=== PATIENT | female | born 1970 | race Asian ===

== ENCOUNTER → 2021-11-11 10:23 | Outpatient (CLI) | payer OTHER, SELFPAY ==
--- NOTE | 2021-11-11 10:27 | DI.CT.S_ITS ---
PROCEDURE: CT ABDOMEN PELVIS WO/W CON INDICATIONS: Hematuria of unknown origin TECHNIQUE: Optional 5 mm thick noncontrast images acquired from the diaphragm to the symphysis pubis. After the administration of intravenous contrast, 5 mm thick images acquired from the diaphragm to the symphysis pubis after a 10-minute delay. 2 mm thick coronal and sagittal reformats were then performed of the kidneys and ureters. For radiation dose reduction, the following was used: automated exposure control, adjustment of mA and/or kV according to patient size. COMPARISON: [facility], , US RENAL, 08/19/2021, 21:22. FINDINGS: Image quality: Excellent. Lung bases: Lung bases are clear. Heart size is normal. Urinary system: Both kidneys are normal in size, without hydronephrosis or nephrolithiasis on pre-contrast images. No perinephric fat stranding. There is normal bilateral renal enhancement. Renal calyces appear normal in morphology when filled with contrast. No abnormality is identified within the inferior right renal pole as identified on prior ultrasound. Opacified portions of both ureters demonstrate normal caliber. Bladder wall thickness is normal. No calcified bladder stones. Other solid organs: Liver is normal in size. Mild steatosis is present. There are 2 foci of low attenuation in the posterior right hepatic lobe the largest measuring 2.4 cm. Hounsfield units are less than 20. Gallbladder is contracted but grossly unremarkable . Biliary system is non dilated. Pancreas enhances normally. Spleen is normal in size and enhancement. No adrenal nodules. Peritoneum and bowel: Bowel loops demonstrate normal wall thickness and caliber. No free fluid or air. Nodes and vessels: No retroperitoneal or mesenteric adenopathy by size criteria. Aorta and inferior vena cava are normal in size. Abdominal wall: No ventral hernias. Pelvis: No pathologic free pelvic fluid. No inguinal hernias or adenopathy. Uterus is enlarged as well as lobulated with multiple areas of calcification. Endometrial complex appears prominent. Bones: No suspicious bony lesions. No vertebral body compression fractures. IMPRESSION: No renal, ureteral or bladder calculi. Previous areas of increased echogenicity within the kidneys are not visualized on current exam. No filling defects are identified. Enlarged lobulated bladder with multiple areas of calcifications suggestive of fibroids. Pelvic ultrasound may be obtained for further evaluation. Prominent appearance of the uterine endometrium. Further evaluation with pelvic ultrasound is recommended. Dictated by: Alyce Schmid M.D. on 11/11/2021 at 15:38 Approved by: Alyce Schmid M.D. on 11/11/2021 at 15:42
== END ==
PROVIDERS: PCP Physician Assistant Medical; Referring Provider Specialist; Visit Provider Specialist
DX: R31.0 Gross hematuria (principal); N32.89 Other specified disorders of bladder; R39.9 Unspecified symptoms and signs involving the genitourinary system
CPT/HCPCS: 74178; Q9967

== ENCOUNTER 2023-10-27 12:11 | Day surgery (SDC) | payer OTHER, SELFPAY ==
[2023-10-25 09:45] VITALS: BMI 23.7
[2023-10-27] VITALS (17 sets, daily range): BP systolic 101–124; BP diastolic 50–69; PULSE 54–72; RESP 12–18; TEMP 36.1–36.8; O2SAT 96–100; BMI 23.7
--- NOTE | 2023-10-27 | PATH_ITS ---
[facility] Accession Number: [id number] No. of containers..01 Tissue . 01 Material submitted: . uterus - UTERUS AND BILATERAL FALLOPIAN TUBES . 01 Diagnosis: UTERUS AND BILATERAL FALLOPIAN TUBES, HYSTERECTOMY AND BILATERAL SALPINGECTOMY: Multiple benign leiomyomas. Paratubal cyst. No evidence of malignancy or atypical hyperplasia. [facility] 11/01/2023 0843 Local . 01 Electronically signed: . Sarita Carroll MD, Pathologist NPI- [id number] . 01 Gross description: . Received in formalin with two patient identifiers and designated uterus, bilateral fallopian tubes, and consists of a 15.0 x 12.0 x 5.0 cm aggregate (299-gram) fragmented uterus with detached cervix and detached bilateral fimbriated fallopian tubes. The detached cervix measures 3.0 x 2.5 x 1.5 cm, and has a focally hemorrhagic white glistening ectocervix. There are multiple endocervical cysts which are simple and mucoid filled, ranging from 0.2 cm up to 0.5 cm in greatest dimension. There is a 1.1 cm slit-like patient os. The endocervical canal is sinclair, trabeculated, and free of exophytic lesions. The serosal surface is sinclair, focally hemorrhagic, smooth and glistening. The myometrium is sinclair, trabeculated with multiple white, whorled, well-circumscribed, intramural and subserosal nodules (more than 10), ranging from 0.3 x 0.2 x 0.2 cm up to 5.0 x 4.5 x 3.8 cm. Two of the larger nodules are diffusely calcified. The uninvolved myometrium averages 1.8 cm thickness. The endometrium is diffusely hemorrhagic, sinclair-red, and averages 0.2 cm in thickness. The first detached fimbriated fallopian tube measures 3.0 cm in length by 0.4 cm in diameter and has a 0.5 x 0.4 x 0.4 cm unilocular smooth-walled serous fluid-filled paratubal cyst. The second detached fimbriated fallopian tube measures 2.8 cm in length by 0.4 cm in diameter, and has a 0.3 cm stellate lumen. Computer Builder sections are submitted: . A1-A2: Cervix. A3: Full thickness endomyometrium. A4: Endomyometrium. A5-A6: Computer Builder sections of smaller myometrial nodules (four pieces in each cassette). A7: Computer Builder sections of larger calcified myometrial nodules (following decalcification). A8: Fimbriated fallopian tube and paratubal cyst 1. A9: Fimbriated fallopian tube #2. ([id number]) /MRV 10/28/2023 1329 Local . 01 Pathologist provided ICD-10: D25.0, D25.2 . 01 CPT . 403550 Specimen Comment: A courtesy copy of this report has been sent to [phone] Performed at: [address] [facility] [address], [place], [place] [id number] MD Pankaj Cao MD Phone: [phone]
--- NOTE | 2023-10-27 12:39 | PM.PREOP ---
Pre-operative Note Interval Note History & Physical reviewed/Exam performed by Physician: Yes Changes to H&P: No H&P completed within 30 days and has changed as indicated here:: 10/05/23
[2023-10-27] MEDS: LACTATED RINGERS 1,000 ML 21 ML IV ×2 (12:43→14:53)
[2023-10-27] MEDS: CEFAZOLIN 2 GM/100 ML PREMIX 100 ML IV (13:40)
[2023-10-27] MEDS: ACETAMINOPHEN IV 1,000 MG/100 ML VIAL 400 MG IV (13:45)
--- NOTE | 2023-10-27 14:24 | SUR.OPER ---
Lithotomy on padded OR bed. [place] Pad Positioner under torso. Head on pillow, arms padded and tucked at sides. Legs secured in padded yellow fins stirrups.
[2023-10-27] MEDS: BUPIVACAINE 0.25% (PF) 30 ML, EPINEPHrine 0.15 MG INJ (14:40)
--- NOTE | 2023-10-27 16:49 | P.OP_ITS ---
Operative Date/Time/Diagnoses Date of procedure: 10/27/23 Time of procedure: 16:49 Pre-op diagnosis: Uterine prolapse Enlarged fibroid uterus Cystocele and rectocele Post-op diagnosis: same Procedure & Clinicians Procedure: Procedures Operation Date: 10/27/23 13:30 Actual Procedure Side Surgeon p Laparoscopic Assisted Vaginal Hysterectomy with bilateral salpingo- oophorectomy, cystoscopy MD leif Wilkins Anterior/Posterior Repair Elina Mi MD Indications: 53-year-old with uterine prolapse, cystocele, and rectocele. Surgeon: Elian Mi Change Management Consultant: Carmen Thayer Anesthesia Type: General and Local Operative Notes Findings: Ten week size multifibroid uterus Normal tubes and ovaries Third-degree cystocele Second-degree rectocele Closure Type: primary Specimen(s): left tube & ovary, right tube & ovary and uterus Applied: catheter (To continuous drainage) Estimated blood loss (mL): 100 Blood products transfused: none Procedure in detail: The patient was taken to the operating room where she was placed in the dorsal supine position. After adequate general endotracheal anesthesia was achieved, she was placed in the dorsal lithotomy position, and prepped and draped in the usual sterile fashion. A bivalve speculum was placed into the vagina, and a single-tooth tenaculum was placed on the anterior lip of the cervix. The cervical os was sequentially dilated until the ZUMI uterine manipulator could pass easily into the endometrial cavity. The single-tooth tenaculum was removed from the anterior lip of the cervix, and the bivalve speculum was removed from the vagina. Attention was then turned to the abdomen where 4 mL of half percent Marcaine with epinephrine were injected in the umbilical fold. A 5 mm incision was made. The Verees needle was placed into the peritoneal cavity, and its placement confirmed by aspiration and drop test. The abdominal cavity was insufflated with 4 L of CO2. The Verees needle was removed, and a 5 mm trocar was placed without difficulty. Initial inspection of the pelvis revealed the findings noted above. 2 other incisions were made 4 cm lateral to the midline at the level of the umbilicus. These were 5 mm incisions. Two 5 mm trocars were placed under direct visualization. The right tube and ovary were grasped with an atraumatic grasper. The infundibulopelvic ligament on the right side was cauterized and cut with Powerseal. The round ligament and broad ligament were cauterized and cut. This was continued to the level of the uterine arteries. This was repeated on the patient's left side. The instruments were removed from the abdomen. Attention was then turned to the vagina where the ZUMI uterine manipulator was removed from the uterus. The cervix was grasped with a 4 tooth tenaculum. 10 mL of half percent Marcaine with epinephrine were injected circumferentially around the cervix. The cervix was circumscribed. The bladder and rectum were dissected off the lower uterine segment and cervix with an open moistened Ray-Breana. The peritoneum was entered sharply with the Metzenbaum scissors anteriorly and a [place] placed. The peritoneum was entered posteriorly with the Metzenbaum scissors and the long weighted speculum was placed into the posterior cul-de-sac. The uterosacral cardinal ligament complexes were clamped, transected, and suture ligated with 0 Vicryl. These were attached to hemostat. The uterine arteries were clamped, transected, and suture ligated with 0 Vicryl. The uterus was hand morcellated with a # 11 blade until it was decompressed and could pass through the vagina. The uterus was handed off for specimen with the tubes and ovaries. The vaginal cuff was closed with 0 Vicryl with a series of simple interrupted sutures. The tagged sutures were cut. 2 Allis clamps were placed at the apex of the cystocele. 6 mL of half percent Marcaine with epinephrine were injected and an incision was made with a #10 blade between the 2 Allis clamps. Wide Allis clamps were placed on the midline of the cystocele approximately 5. The mucosa was undermined using the Metzenbaum scissors and the mucosa incised in the midline moving the wide Allis clamps to the edges of the mucosa. The mucosa was dissected off the underlying fascia using an open moistened Ray-Breana and a #10 blade. The fascia was reapproximated with 0 Vicryl with a series of horizontal mattress sutures. The excess vaginal mucosa was excised. The mucosa was closed using simple interrupted sutures with 2-0 Vicryl including the underlying fascia to close the space. The weighted speculum was removed from the vagina. Allis clamps were placed at the mucocutaneous junction at the introitus. 6 mL of half percent Marcaine with epinephrine were injected. An incision was made with a #10 blade between the 2 Allis clamps, and a triangular piece of skin and underlying subcutaneous tissue was removed. Allis clamps were placed in the midline of the rectocele. 10 mL of half percent Marcaine with epinephrine were injected submucosally. The mucosa was undermined using the Metzenbaum scissors and the mucosa incised in the midline, moving the wide Allis clamps to the mucosal edges. The underlying fascia was dissected off of th mucosa using an open moistened Ray-Breana and a #10 blade. The fascia was reapproximated using 0 Vicryl with a series of horizontal mattress sutures. The excess vaginal mucosa was excised. The mucosa was closed using a series of simple interrupted sutures with 2-0 Vicryl including the underlying fascia to close the space. On the perineum 0 Vicryl was used to reapproximate the levator muscle. The subcutaneous layer was closed with 2-0 Vicryl. The skin was closed with 2-0 chromic in a subcuticular fashion. Hemostasis was achieved. A Betadine moistened vaginal pack was placed into the vagina. A rectal exam was done and there were no sutures palpable in the rectum. A Pruitt catheter was kept in the bladder. The urine was clear. Sponge, lap, and instrument counts were correct x-2. The patient tolerated the procedure well, was taken to PACU in stable condition. Complications: none Post-operative Condition: stable Disposition: PACU Plan for aftercare: To acute care after recovery
[2023-10-27] MEDS: LACTATED RINGERS 1,000 ML 100 ML IV ×2 (17:30→21:51)
[2023-10-27] MEDS: DOCUSATE 100 MG CAPSULE 200 MG PO (21:51)
[2023-10-27] MEDS: KETOROLAC 30 MG/ML VIAL IV ×2 (23:29→23:36)
[2023-10-27] MEDS: ACETAMINOPHEN 325 MG TABLET 650 MG PO (23:30)
[2023-10-28 03:23] VITALS: BP 121/54; PULSE 66; RESP 16; TEMP 36.6; O2SAT 97
[2023-10-28 05:51] LABS: Add Manual Diff / Slide Review NO; Basophils Absolute Auto 0 /uL (0-100); Basophils Percent Auto 0.1 % (0-2); Eosinophils Absolute Auto 0 /uL (0-450); Hemoglobin 12.2 g/dL (12.0-16.0); Lymphocytes Absolute Auto 1400 /uL (1100-4500); Mean Corpuscular Hemoglobin 34.2 PG (26-34); Mean Corpuscular Volume 97.6 fL (80-100); Monocytes Absolute Auto 400 /uL (0-900); Monocytes Percent Auto 4.3 % (3-14); Neutrophils Absolute Auto 8200 /uL (1500-7000); Neutrophils Percent Auto 81.6 % (50-75); Platelet Count 190 X10^3/uL (150-400); Red Blood Cell Count 3.58 X10^6/uL (4.0-5.2); Red Cell Distribution Width 12.5 % (11.6-14.8); White Blood Cell Count 10.1 X10^3/uL (4.5-11.0)
[2023-10-28 08:00] VITALS: BP 106/49; PULSE 64; RESP 16; TEMP 36.7; O2SAT 99
[2023-10-28] MEDS: DOCUSATE 100 MG CAPSULE 200 MG PO (08:57)
[2023-10-28] MEDS: AMLODIPINE 5 MG TABLET 10 MG PO (08:57)
--- NOTE | 2023-10-28 13:14 | PC.NURSE ---
Dayshift: Provided pt and spouse with discharge education re: surgical aftercare and infection prevention. PIV DC'ed. All belongings with pt. Pt stated understanding and all questions answered. Pt ambulated with spouse and BINH Gonzales to POV.
--- NOTE | 2023-10-28 14:15 | CM.DANOTE ---
Initial DCP Assessment Visit Note Reviewed EMR and team rounds for pt's medical status and anticipated d/c needs. Met with pt's spouse at bedside to introduce self and role. Pt was in the restroom at the time, as she was ready for discharge but needed to void before she was cleared to leave. Pt resides independently with her spouse in their own home in [place]. Spouse will drive her home once she's voided. Payor: [facility] Attending: Dr. Mi Pt is a 53 year-old F post-op day 1 from a laparoscopic total hyterectomy and bilateral salpingectomy. She was found to have a prolapsed fibroid uterus and both a cystocele and retrocele. She has done well postoperatively according to her RN and spouse. He declines any resource or support needs from DCP at this time. DCP will continue to follow and assist with any further evolving needs. Discharge Planning/Care Management CM Discharge Assessment Start: 10/28/23 14:08 Freq: Status: Active Protocol: Document 10/28/23 14:08 DPL (Rec: 10/28/23 14:15 DPL [id number]) Discharge Planning Assessment Assigned Social Work Therapist TARSHA Dai Advance Directives? No History Provided By Significant Other,Medical Record Expected Length of Stay 1 Has Patient been admitted in last 30 No days? Prior Living Arrangements House Household Members spouse Type of transporation used prior to Drives own vehicle admit Independent with ADL's Yes Is patient alert and oriented? Yes Comment N/A Comment No needs were idenified for DCP during this admission. 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 No Hx Sleep Apnea No Currently Taking a Beta Modesta No Anti-Coagulant Therapy No Cardiac Testing No Hx Pacemaker/ICD No Pacemaker Rep Required? No Cardiac Clearance Received No Bladder Pattern Frequency,Incontinent, Stress, Nocturia Urinary Catheter Present No Hx Urinary Self Catheterization No Comment Pessary Diabetes No Patient No Lactating No Presence of External or Internal Medical Yes: Pessary Devices Received a COVID vaccine? Yes Received all doses? Yes Marital Status Lives With spouse Patient Discharge Plan Description Return Home
--- NOTE | 2023-11-23 22:54 | P.DS_ITS ---
History of Present Illness History of Present Illness Date Patient Seen: 10/28/23 Time Patient Seen: 10:30 Chief complaint: Laparoscopic Assisted Vag Hysterectomy Narrative: Patient is a 53-year-old postop day # 1 status post LAVH/BSO/anterior and posterior repair and cystoscopy. Her pain is well controlled. Her Pruitt catheter has been removed. She has voided without the catheter. She has tolerating a diet. No nausea or vomiting. Minimal vaginal bleeding. Discharge Providers Provider Discharge Date: 10/28/23 Primary care physician: Shilpa Mary PA-C Discharge provider: Elina Mi MD Summary Hospital Course Discharge Diagnosis: Symptomatic uterine prolapse, cystocele, rectocele Status post LAVH/BSO/anterior and posterior repair Hospital Course: Patient is a 53-year-old who underwent a scheduled LAVH/BSO/anterior and posterior repair on October 27, 2023. This was unremarkable. Her postoperative course went well. Her Pruitt catheter was removed and she was able to void with minimal postvoid residual. She tolerated a diet. She was passing flatus. Had minimal vaginal bleeding. No nausea or vomiting. Her pain was well controlled. She was discharged home on postop day #1 Status at Discharge Cognitive/behavioral status at discharge: oriented Functional status at discharge: independent ambulation Overall status at discharge: patient is progressing back to baseline Time Spent with Patient Time spent: Less than 30 minutes Exam Vital Signs (past 8 hours): Oxygen Delivery Method Room Air Oxygen Flow Rate 0 Narrative Exam Narrative: Generally: Patient is sitting up in bed, no acute distress Lungs: Clear to auscultation bilaterally Cardiovascular: Regular rate and rhythm Abdomen: Soft and flat Incisions: Clean dry and intact with Allevyn dressings Perineum: Small amount of old blood Extremities: Negative Homans Objective Labs 10/28/23 05:23 [facility] Medical History Gross hematuria Hematuria High cholesterol Hypertension Lower urinary tract symptoms (LUTS) Macrocytic anemia Social History household members: spouse Smoking Status: Never smoker alcohol intake: never caffeine: No Type(s) of exercise: running frequency: 5-6 times per week Discharge Plan Discharge Plan Patient Disposition: Home Provider Discharge Comment: Call with fever, chills, redness or drainage around the incisions or bleeding vaginally more than spotting to light Ibuprofen 600mg every 6 hours as needed Tylenol 650mg every 6 hours as needed Void at least once a night for the first week Discharge orders & Medications Discharge Orders: Discharge (Order); Ordered 10/28/23 Ordered By: Elina Mi Prescriptions: Continued amlodipine 10 mg tablet 10 mg PO DAILY Follow up/Referrals: Elina Mi MD [Physician] - (Patient has postoperative visits scheduled Patient is to call [phone] if she has any postoperative issues) Shilpa Mary PA-C [Primary Care Provider] - Diet/Activity/Treatments Diet: Regular Activity: No heavy lifting for 6 weeks Skin/Wound/Dressing Care Report to your healthcare provider any signs of infection, such as:: chills, fever, increased pain, unusual drainage and unusual redness Dressing: Remove outer pink dressings with attached gauze in 3 days after morning shower Leave Steri-Strips in place until they fall off May shower daily Visit Report/Discharge Packet Instructions: DI for Cystocele and Rectocele Repair, DI for Hysterectomy, DI for Laparoscopy Stand Alone Forms: Patient Portal/API, Surgery Discharge Discharge Data Primary Care Provider: Shilpa Mary Attending Provider: Elina Mi Quality VTE Deep Vein Thrombosis/Pulmonary Embolism Present on Admission: No
== END 2023-10-28 13:19 | disposition home or self-care (01) ==
LOC: OR 12:12 → AC 12:16
PROVIDERS: PCP Physician Assistant Medical; Referring Provider Obstetrics & Gynecology; Visit Provider Obstetrics & Gynecology
PROC: 0UT9FZZ Resection of Uterus, Via Natural or Artificial Opening With Percutaneous Endoscopic Assistance (ICD-10-PCS; CPT 58552; principal; 2023-10-27 13:30)
PROC: (CPT 58552; 2023-10-27 13:30)
DX: N81.3 Complete uterovaginal prolapse (principal); D25.9 Leiomyoma of uterus, unspecified; N83.8 Other noninflammatory disorders of ovary, fallopian tube and broad ligament
CPT/HCPCS: 58552; 57260; 36415; 85025; J0136; J0171; J0690; J1100; J1885; J2250; J2405; J2704; J3010

== ENCOUNTER → 2024-01-04 10:15 | Outpatient (CLI) | payer OTHER, SELFPAY ==
[2023-10-27 19:51] VITALS: BMI 23.7
== END ==
PROVIDERS: PCP Physician Assistant Medical; Visit Provider Obstetrics & Gynecology
DX: R35.0 Frequency of micturition (principal)
CPT/HCPCS: 87077; 87086